=== PATIENT | female | born 1970 ===

== ENCOUNTER 2023-03-23 12:35 | Outpatient (CLI) | payer OTHER | END 2023-03-23 12:38 | disposition home or self-care (01) | LOC: SONOGRAMA 12:35 | DX: K76.0 Fatty (change of) liver, not elsewhere classified (principal) ==

== ENCOUNTER 2024-10-11 11:07 | Outpatient (CLI) | payer OTHER | END 2024-10-11 11:19 | disposition home or self-care (01) | LOC: SONOGRAMA 11:07 | DX: M19.90 Unspecified osteoarthritis, unspecified site (principal); M17.9 Osteoarthritis of knee, unspecified; K76.0 Fatty (change of) liver, not elsewhere classified ==